=== PATIENT | female | born 1990 | race African-American/Black ===

== ENCOUNTER 2023-05-20 20:51 | Emergency (ER) | payer OTHER ==
[2023-05-20] MEDS ORDERED: hydrOXYzine HCl 25 MG Tab PO ONE (21:08)
== END 2023-05-20 21:22 | disposition home or self-care (01) ==
LOC: MW.ED 20:51
DX: F41.0 Panic disorder [episodic paroxysmal anxiety] (principal); Z88.0 Allergy status to penicillin
CPT/HCPCS: 99283; A9270

== ENCOUNTER 2025-04-20 00:07 | Emergency (ER) | payer BC ==
[2025-04-20] MEDS: Ketorolac 30 MG/ML SDV IM ONE (01:44)
== END 2025-04-20 01:57 | disposition home or self-care (01) ==
LOC: MW.ED 00:07
DX: S29.012A Strain of muscle and tendon of back wall of thorax, initial encounter (principal); J45.909 Unspecified asthma, uncomplicated; Z88.0 Allergy status to penicillin; Z79.51 Long term (current) use of inhaled steroids; Z79.899 Other long term (current) drug therapy; X50.0XXA Overexertion from strenuous movement or load, initial encounter
CPT/HCPCS: 96372; 99283; A9270; J1885; 99282